=== PATIENT | female | born 1985 | race Asian ===

== ENCOUNTER 2017-02-05 13:00 | Emergency (ER) | payer SELFPAY ==
[~2017-02-05] VITALS: Ht 170.2 cm; Wt 61.7 kg
[2017-02-05 13:20] VITALS: BP 110/72
--- NOTE | 2017-02-05 14:11 | Emergency Room Report ---
History of Present Illness General Chief Complaint: Skin Rash/Abscess Source: Patient Present Illness HPI 32-year-old female presents to the emergency department complaining of an itchy rash to the anterior abdomen and in her right arm x5 days. Patient reports onset was after having incident at work which required administrative reporting about a work incident and ultimately being placed on administrative leave. Patient reports heightened anxiety and alleged employer aggression. Denies fevers or chills. Denies lesions/rashes elsewhere on the body. Denies new medications or body washes or creams. Denies swelling of the lips, tongue , throat or airway. Denies wheezing, or shortness of breath. Denies recent travel , recent illness or ill contacts. denies blisters, oral lesions, or sloughing of the skin. Pt. has not taken any medications for her symptoms. reports hx of eczema in the past but had different presentation. Denies CP, Palpitations, LOC , AMS, dizziness, Changes in Vision, Sensation, paresthesias, or a sudden severe headache. Allergies: Coded Allergies: No Known Allergies (Unverified , 02/05/17) Patient History Past Medical History: see triage record Past Surgical History: none Pertinent Family History: none Last Menstrual Period: IUD present. Now: No : 0 Reviewed Nursing Documentation: PMH: Agreed, PSxH: Agreed Review of Systems All Other Systems: negative except mentioned in HPI Physical Exam Vital Signs Date Time Temp Pulse Resp B/P (MAP) Pulse Ox O2 Delivery O2 Flow Rate FiO2 02/05/17 13:12 98.2 70 22 110/72 97 Room Air Sp02 EP Interpretation: reviewed, normal General Appearance: no apparent distress, alert, GCS 15, non-toxic Head: normocephalic, atraumatic Eyes: bilateral eye normal inspection, bilateral eye PERRL ENT: hearing grossly normal, normal voice Neck: full range of motion Respiratory: lungs clear, normal breath sounds, no wheezing, speaking full sentences Cardiovascular #1: regular rate, rhythm Gastrointestinal: non tender, soft, no guarding, no rebound, other - anterior abdominal and right medial antecubital rash: excoriations noted, erythematous papules, no blisters or vessicles, no evidence of secodary infeciton. Rectal: deferred Genitourinary: normal inspection, no CVA tenderness Musculoskeletal: back normal, gait/station normal, normal range of motion, non- tender Neurologic: alert, oriented x3, responsive, motor strength/tone normal, sensory intact, speech normal Skin: normal color, warm/dry, well hydrated, rash - anterior abdominal and right medial antecubital rash: excoriations noted, erythematous papules, no blisters or vessicles, no evidence of secodary infeciton. Medical Decision Making PA Attestation Dr. Wilson is my supervising Physician whom patient management has been discussed with. Diagnostic Impression: Primary Impression: Dermatitis ER Course 32-year-old female presents to the emergency department complaining of an itchy rash to the anterior abdomen and in her right arm x5 days. Patient reports onset was after having incident at work which required administrative reporting about a work incident and ultimately being placed on administrative leave. Patient reports heightened anxiety and alleged employer aggression. Denies fevers or chills. Denies lesions/rashes elsewhere on the body. Denies new medications or body washes or creams. Denies swelling of the lips, tongue , throat or airway. Denies wheezing, or shortness of breath. Denies recent travel , recent illness or ill contacts. denies blisters, oral lesions, or sloughing of the skin. Pt. has not taken any medications for her symptoms. reports hx of eczema in the past but had different presentation. Denies CP, Palpitations, LOC , AMS, dizziness, Changes in Vision, Sensation, paresthesias, or a sudden severe headache. Ddx considered but are not limited to cellulitis, scabies, shingles, varicella, dermatitis, urticaria, eczema, tinea, viral exanthem, SJS Vital signs: are WNL, pt. is afebrile H&PE are most consistent with allergic Dermatitis-- anterior abdominal and right medial antecubital rash: excoriations noted, erythematous papules, no blisters or versicles, no evidence of secodary infection. ORDERS: none required at this time, the diagnosis is clinical ED INTERVENTIONS: None required at this time. DISCHARGE: At this time pt. is stable for d/c to home. Will provide printed patient care instructions, and any necessary prescriptions. Care plan and follow up instructions have been discussed with the patient prior to discharge. Last Vital Signs Date Time Temp Pulse Resp B/P (MAP) Pulse Ox O2 Delivery O2 Flow Rate FiO2 02/05/17 13:12 98.2 70 22 110/72 97 Room Air Disposition: HOME, SELF-CARE Condition: Stable Scripts Hydroxyzine HCl (Hydroxyzine HCl) 25 Mg Tablet 25 MG ORAL FOUR TIMES A DAY, #24 TAB Prov: Shiirn Green 02/05/17 Hydrocortisone (Hydrocortisone Cream 2.5%) Y Cream.appl 1 APPLIC TP BID, #28.3 GM Prov: Shirin Green 02/05/17 Referrals: NOT CHOSEN IPA/MD,REFERRING (PCP) Patient Instructions: Rash Additional Instructions: Take medications as directed. Follow up with a Primary Care Provider in 3-5 days, even if your symptoms have resolved. --Please review list of primary care clinics, if you do not already have a primary care provider Return sooner to ED if new symptoms occur, or current symptoms become worse. Do not drink alcohol, drive, or operate heavy machinery while taking Hydroxyzine as this may cause drowsiness. - Please note that this Emergency Department Report was dictated using [employer] technology software, occasionally this can lead to erroneous entry secondary to interpretation by the dictation equipment. Shirin Green Feb 05, 2017 14:11
[2017-02-05] MEDS ORDERED: ATARAX25 MG ORAL (14:13)
[2017-02-05] MEDS ORDERED: HYDROCORTISONE30 G2 TP (14:13)
[2017-02-05 14:20] VITALS: BP 108/66
== END 2017-02-05 14:31 | disposition home or self-care (01) ==
LOC: EMR 13:45
DX: L30.9 Dermatitis, unspecified (principal)
CPT/HCPCS: 99283